=== PATIENT | female | born 1955 | race Caucasian/White ===

== ENCOUNTER → 2016-12-08 | Outpatient (CLI) | payer MEDICARE ==
[~2016-12-08] MED LIST: AMIT150T PO; AUGM875T28 PO; CLON0.5T PO; COUM1TAB14 PO; OMEP40CA2 PO; TRAM50TA2 PO
--- NOTE | 2016-12-08 09:04 | REP ---
MAXILLOFACIAL CT WITHOUT CONTRAST: HISTORY: Left mandible fracture. A BB was placed on the soft tissue overlying the body of the left mandible. The sinuses are clear. The ostiomeatal units are patent. The middle and inferior nasal turbinates are partially paradoxical. The nasal septum is midline. The cribriform plate, medial aguayo of the orbits and optic canals are intact. A 1.8 cm mass with a hypodense center is present in the subcutaneous tissue overlying the angle of the left mandible. There is thickening of the left masseter and platysma muscles. Stranding is present in the overlying subcutaneous tissue. The naso-, lidia- and hypopharynx are normal in appearance. Small lymph nodes less than 1 cm in size are present in the internal jugular chains, posterior triangles and submandibular areas. There is no fracture. There appear to be dental caries involving the remaining mandibular molar teeth bilaterally. IMPRESSION: 1. There is no acute or chronic sinusitis. 2. There is a 1.8 cm hypodense mass in the subcutaneous tissue lateral to the angle of the left mandible. There is enlargement of the left masseter and platysma muscles with associated stranding in the overlying subcutaneous tissue. These findings may represent an abscess, infected lymph node or hematoma. Signed by Campbell Aleman MD 12/08/2016 09:17 A
== END ==
LOC: M RAD 07:37
PROVIDERS: ATTEND Specialist
DX: R22.1 Localized swelling, mass and lump, neck (principal)

== ENCOUNTER 2016-12-13 15:03 | Inpatient (IN) | payer MEDICARE ==
[~2016-12-13] VITALS: Ht 167.6 cm; Wt 94.8 kg
[2016-12-13] MEDS ORDERED: ONDANSETRON 4MG/2ML VIAL (J2405) IV PRN (16:00)
[2016-12-13] MEDS ORDERED: ACETAMINOPHEN TAB 650MG DOSE (2X325MG) PO PRN (16:00)
[2016-12-13 18:45] VITALS: BP 168/93
[2016-12-13 20:00] VITALS: BP 138/82
[2016-12-13 20:00] LABS: BASO % 0.4 % (0.0-1.0); EOS # 0.1 K/mm3 (0.0-0.50); EOS % 0.9 % (0.0-3.0); LARGE UNSTAINED CELL # 0.3 K/mm3 (0.0-0.4); LYMPH # 1.9 K/mm3 (1.5-4.5); LYMPH % 22.6 % (24.0-44.0); MEAN CORPUSCULAR HGB CONC 33.8 g/dl (32.0-36.5); MEAN CORPUSCULAR VOLUME 97.6 fl (80.0-96.0); MONO # 0.5 K/mm3 (0.0-0.8); MONO % 5.3 % (0.0-5.0); NEUTROPHILS # 5.8 K/mm3 (1.8-7.7); NEUTROPHILS % 67.8 % (36.0-66.0); PLATELET COUNT, AUTOMATED 278 k/mm3 (150-450); RED CELL DISTRIBUTION WIDTH 12.5 % (11.5-14.5); WHITE BLOOD COUNT 8.6 K/mm3 (4.0-10.0)
[2016-12-13 20:08] LABS: INR 2.25
[2016-12-13] MEDS: NS 1,000 ML IV SCH (20:34)
[2016-12-13] MEDS: CLINDAMYCIN 600 MG in APPROPRIATE DILUENT 1 EA IV SCH (20:34)
[2016-12-13 20:37] LABS: ALBUMIN 3.5 GM/DL (3.2-5.2); ALBUMIN/GLOBULIN RATIO 0.88 (1.00-1.93); ALKALINE PHOSPHATASE 115 U/L (45-117); ALT/SGPT 45 U/L (12-78); ANION GAP 12 MEQ/L (8-16); AST/SGOT 46 U/L (15-37); BILIRUBIN,TOTAL 0.4 MG/DL (0.2-1.0); BLOOD UREA NITROGEN 17 MG/DL (7-18); CALCIUM LEVEL 8.7 MG/DL (8.8-10.2); CARBON DIOXIDE LEVEL 24 MEQ/L (21-32); CHLORIDE LEVEL 105 MEQ/L (98-107); CREATININE FOR GFR 0.72 MG/DL (0.55-1.02); GLOMERULAR FILTRATION RATE > 60.0 (>45); GLUCOSE, FASTING 95 MG/DL (80-110); POTASSIUM SERUM 3.7 MEQ/L (3.5-5.1); SODIUM LEVEL 141 MEQ/L (136-145); TOTAL PROTEIN 7.5 GM/DL (6.4-8.2)
[2016-12-13] MEDS ORDERED: TRAM50TA2 PO ×3 (20:49)
[2016-12-13] MEDS: NORCO, ANEXSIA 5/325MG TABLET (HYDROcodone/ACETAMINOPHEN) PO PRN (20:50)
[2016-12-13] MEDS ORDERED: OMEP40CA2 PO (21:04)
[2016-12-13] MEDS ORDERED: AMIT150T PO (21:04)
[2016-12-13] MEDS ORDERED: CLON0.5T PO (21:04)
[2016-12-13] MEDS ORDERED: PHYTONADIONE 10MG/ML INJECTION (J3430) SC ONE (21:15)
--- NOTE | 2016-12-13 21:59 | HPEPDOC ---
General Date of Admission Dec 13, 2016 at 18:38 Attending Physician: DESTINY SCOTT MD Chief Complaint The patient is a 61-year-old female admitted with a reason for visit of Dental Abscess. History of Present Illness 61-year-old female with past medical history of depression, GERD, Cervical Ca s/ p Chemo and Radiation in 2007, Factor V Leiden deficiency with History of PE and DVTs in the past, s/p [place] Filter and on Coumadin presents to the ER at the request of ENT Dr. Gautam, after she was noted to have a worsening dental abscess on CT Scan of the Maxillfacial region. Apparently, the patient developed the dental abscess/mass over the last 2 weeks. She did have it biopsied by Dr. Gautam, and evaluated by Dr. Zhong of Oral surgery as an outpatient. However, given the fact that the abscess has gotten worse, and the patient did develop some soreness in her throat as well as some difficulty swallowing, the patient was advised to come to the hospital for further evaluation and management with IV antibiotics, and further surgical intervention. During this time, the patient states that she has not felt febrile or had any complaints of chills, chest pain, shortness of breath, abdominal pain, or any nausea/vomiting/diarrhea. Home Medications Scheduled Amitriptyline HCl (Amitriptyline HCl) 150 Mg Tab, 150 MG PO QPM, (Reported) Omeprazole (Omeprazole) 40 Mg Cap, 40 MG PO QPM, (Reported) Tramadol HCl (Tramadol HCl) 50 Mg Tab, 50 MG PO QAM, (Reported) Tramadol HCl (Tramadol HCl) 50 Mg Tab, 50 MG PO DAILY, (Reported) Patient takes tramadol in morning and at noon (50mg) Tramadol HCl (Tramadol HCl) 50 Mg Tab, 100 MG PO QHS, (Reported) Scheduled PRN Clonazepam (Clonazepam) 0.5 Mg Tab, 0.5 MG PO TIDP PRN for ANXIETY/AGITATION, ( Reported) Allergies Coded Allergies: Morphine (Verified Allergy, Unknown, 07/11/12) Past Medical History Medical History As noted in HPI. Surgical History Hysterectomy Cholecystectomy Appendectomy Gastric bypass Abdominal hernia repairs Multiple abdominal surgeries with a history of ileostomy in the past, status post reversal Family History Significant Family History: No pertinent family hx Social History * Smoker: Denies Alcohol: Denies Drugs: marijuana (occasionally smokes marijuana) Review of Symptoms Other systems 10 point review of systems negative unless otherwise specified in HPI. Physical Examination General Exam: Positive: Alert, Cooperative, No Acute Distress ENT Exam: Positive: Atraumatic, Other ENT (patient noted to have a golf ball sized abscess/mass on the superficial aspect of the left submandibular region. No active drainage noted. Patient also noted to have some superficial swelling on the inside of the mouth on the left side, with no open lesions noted.), Negative: Mucous membr. moist/pink (dry mucous membranes) Neck Exam: Negative: JVD Chest Exam: Positive: Clear to auscultation, Normal air movement Heart Exam: Positive: Rate Normal, Normal S1, Normal S2 Abdomen Exam: Positive: Soft, Other (multiple surgical scars noted from previous surgeries.), Negative: Tenderness Extremity Exam: Negative: Tenderness, Swelling Psych Exam: Positive: Oriented x 3 Vital Signs Vital Signs Date Time Temp Pulse Resp B/P (MAP) Pulse Ox O2 Delivery O2 Flow Rate FiO2 12/13/16 20:50 18 12/13/16 20:00 100.3 84 138/82 (100) 94 Room Air Laboratory Data Labs 24H Laboratory Tests 2 12/13/16 19:34: White Blood Count 8.6, Red Blood Count 4.19, Hemoglobin 13.8, Hematocrit 40.9, Mean Corpuscular Volume 97.6H, Mean Corpuscular Hemoglobin 33.0, Mean Corpuscular Hemoglobin Concent 33.8, Red Cell Distribution Width 12.5, Platelet Count 278, Neutrophils (%) (Auto) 67.8H, Lymphocytes (%) (Auto) 22.6L, Monocytes (%) (Auto) 5.3H, Eosinophils (%) (Auto) 0.9, Basophils (%) (Auto) 0.4 , Neutrophils # (Auto) 5.8, Lymphocytes # (Auto) 1.9, Monocytes # (Auto) 0.5, Eosinophils # (Auto) 0.1, Basophils # (Auto) 0.0, Large Unclassified Cells % 3.0 , Large Unclassified Cells # 0.3, Prothrombin Time 25.7H, Prothromb Time International Ratio 2.25, Activated Partial Thromboplast Time 43.9H, Anion Gap 12, Glomerular Filtration Rate > 60.0, Blood Urea Nitrogen 17, Creatinine 0.72, Sodium Level 141, Potassium Level 3.7, Chloride Level 105, Carbon Dioxide Level 24, Calcium Level 8.7L, Aspartate Amino Transf (AST/SGOT) 46H, Alanine Aminotransferase (ALT/SGPT) 45, Alkaline Phosphatase 115, Total Bilirubin 0.4, Total Protein 7.5, Albumin 3.5, C-Reactive Protein, Quantitative 0.81H, Albumin/ Globulin Ratio 0.88L CBC/BMP Laboratory Tests 12/13/16 19:34 Red Blood Count 4.19, Mean Corpuscular Volume 97.6 H, Mean Corpuscular Hemoglobin 33.0, Mean Corpuscular Hemoglobin Concent 33.8, Red Cell Distribution Width 12.5, Neutrophils (%) (Auto) 67.8 H, Lymphocytes (%) (Auto) 22.6 L, Monocytes (%) (Auto) 5.3 H, Eosinophils (%) (Auto) 0.9, Basophils (%) ( Auto) 0.4, Neutrophils # (Auto) 5.8, Lymphocytes # (Auto) 1.9, Monocytes # (Auto ) 0.5, Eosinophils # (Auto) 0.1, Basophils # (Auto) 0.0, Calcium Level 8.7 L, Aspartate Amino Transf (AST/SGOT) 46 H, Alanine Aminotransferase (ALT/SGPT) 45, Alkaline Phosphatase 115, Total Bilirubin 0.4, Total Protein 7.5, Albumin 3.5 Microbiology Microbiology 12/13/16 Blood Culture, Received Pending 12/13/16 Blood Culture, Received Pending Plan / VTE VTE Prophylaxis Ordered?: Yes Plan Plan Dental Abscess Maxillofacial CT notable for 1.8 cm hypodense mass/abscess in the subcutaneous tissue lateral to the angle of the left mandible Blood cultures, wound culture ordered I did discuss the case with Dr. Gautam of ENT who sent the patient to be directly admitted to the hospital Started on Clindamycin as per ENT Dr. Ortega of Oral Surgery consulted for further evaluation for possible drainage IVF hydration Keep the patient NPO We will f/u with surgical recommendations Factor V Leiden deficiency with History of PE and DVTs s/p [place] filter Patient does take Coumadin for this--INR noted to be 2.25 We will give the patient a dose of Vitamin K in preparation for possible surgery in the AM In the mean-time the patient can be bridged with Lovenox SC BID once her INR is subtherapeutic Depression, stable Continue amitriptyline History of anxiety, stable Continue Klonopin 3 times a day when necessary GERD Continue PPI Cervical Ca s/p Chemo and Radiation in 2007 DVT Prophylaxis INR therapeutic at this time, SCDs/TEDs ordered (Can be started on Lovenox SC BID once INR subtherapeutic, and around surgery) The patient will be admitted under the service of Dr. Scott, who will begin to follow the patient on 12/14/16 at 7 AM. KARY LUCIANO MD Dec 13, 2016 21:59
[2016-12-13] MEDS: clonazePAM 0.5 MG TAB PO PRN (22:38)
[2016-12-13] MEDS ORDERED: KETOROLAC 30 MG/ML VIAL (J1885) IV ONE (23:00)
[2016-12-14] VITALS (8 sets, daily range): BP systolic 117–159; BP diastolic 66–91
[2016-12-14] MEDS: AMITRIPTYLINE 50 MG TAB PO SCH ×2 (00:05→20:22)
[2016-12-14] MEDS: CLINDAMYCIN 600 MG in APPROPRIATE DILUENT 1 EA IV SCH ×4 (02:27→20:20)
[2016-12-14] MEDS: NS 1,000 ML IV SCH (06:44)
[2016-12-14] MEDS: PANTOPRAZOLE 40MG TAB (PROTONIX) PO SCH (08:04)
[2016-12-14] MEDS: NORCO, ANEXSIA 5/325MG TABLET (HYDROcodone/ACETAMINOPHEN) PO PRN ×2 (08:04→12:17)
[2016-12-14 08:07] LABS: MEAN CORPUSCULAR HEMOGLOBIN 32.6 pg (27.0-33.0); MEAN CORPUSCULAR HGB CONC 33.1 g/dl (32.0-36.5); MEAN CORPUSCULAR VOLUME 98.6 fl (80.0-96.0); RED CELL DISTRIBUTION WIDTH 12.5 % (11.5-14.5); WHITE BLOOD COUNT 9.1 K/mm3 (4.0-10.0)
[2016-12-14 08:11] LABS: INR 2.49
[2016-12-14 08:29] LABS: ANION GAP 10 MEQ/L (8-16); BLOOD UREA NITROGEN 16 MG/DL (7-18); CARBON DIOXIDE LEVEL 28 MEQ/L (21-32); CHLORIDE LEVEL 107 MEQ/L (98-107); CREATININE FOR GFR 0.85 MG/DL (0.55-1.02); GLOMERULAR FILTRATION RATE > 60.0 (>45); GLUCOSE, FASTING 97 MG/DL (80-110); MAGNESIUM LEVEL 1.3 MG/DL (1.8-2.4); POTASSIUM SERUM 3.3 MEQ/L (3.5-5.1); SODIUM LEVEL 145 MEQ/L (136-145)
[2016-12-14] MEDS ORDERED: MAGNESIUM OXIDE 400 MG TAB (MAG-OX) PO ONE (08:45)
[2016-12-14] MEDS ORDERED: CALCIUM CARBONATE 500 MG CHEW U/D PO ONE (08:45)
[2016-12-14] MEDS ORDERED: POTASSIUM CHLORIDE 10 MEQ SR TABLET PO ONE (09:00)
[2016-12-14] MEDS ORDERED: ACETAMINOPHEN TAB 650MG DOSE (2X325MG) PO ONE (11:15)
[2016-12-14] MEDS: clonazePAM 0.5 MG TAB PO PRN (12:17)
[2016-12-14] MEDS ORDERED: LIDOCAINE 2% W/ EPINEPHRINE 1.7 ML DENTAL INJ As Ordered ONE (16:20)
[2016-12-14] MEDS ORDERED: CHLORHEXIDINE GLUCONATE 0.12 % 15ML UDC (PERIDEX ORAL RINSE) As Ordered ONE (16:20)
[2016-12-14] MEDS ORDERED: MIDAZOLAM INJ 2 MG/2 ML VIAL (J2250) As Ordered ONE (16:29)
[2016-12-14] MEDS ORDERED: fentaNYL 100 MCG/2 ML INJECTION (J3010) As Ordered ONE ×2 (16:29→17:28)
[2016-12-14] MEDS ORDERED: ROCURONIUM BROMIDE 50 MG/5 ML VIAL/SYRINGE As Ordered ONE (16:33)
[2016-12-14] MEDS ORDERED: PROPOFOL 200 MG/20 ML VIAL As Ordered ONE (16:33)
[2016-12-14] MEDS ORDERED: LIDOCAINE 2% INJ 100 MG/5 ML SDV (FOR ANES.) As Ordered ONE (16:33)
[2016-12-14] MEDS ORDERED: UNASYN 1.5 GM VIAL As Ordered ONE (16:45)
[2016-12-14 17:01] LABS: INR 1.67
[2016-12-14] MEDS ORDERED: dexameTHASONE 4 MG/ML 1ML VIAL (J1100) As Ordered ONE (17:42)
[2016-12-14] MEDS ORDERED: ONDANSETRON 4MG/2ML VIAL (J2405) As Ordered ONE (17:44)
[2016-12-14] MEDS ORDERED: KETOROLAC 60 MG/2 ML VIAL (J1885) As Ordered ONE (17:44)
[2016-12-14] MEDS ORDERED: NEOSTIGMINE 1MG/ML 5 ML SYRINGE (J2710) As Ordered ONE (17:45)
[2016-12-14] MEDS ORDERED: GLYCOPYRROLATE INJ 0.2 MG/ML 2 ML VIAL As Ordered ONE (17:45)
[2016-12-14] MEDS ORDERED: HYDROmorphone HCL 1 MG/ML SYRINGE (J1170) IV PRN (18:45)
[2016-12-14] MEDS ORDERED: LR 1,000 ML IV SCH (18:45)
[2016-12-14] MEDS ORDERED: ONDANSETRON 4MG/2ML VIAL (J2405) IV PRN (18:45)
[2016-12-14] MEDS ORDERED: PERCOCET 5MG/325MG TAB PO PRN (18:45)
[2016-12-14] MEDS ORDERED: fentaNYL 100 MCG/2 ML INJECTION (J3010) IV PRN (18:45)
[2016-12-14] MEDS: PERCOCET 5MG/325MG TAB PO PRN (20:22)
[2016-12-14] MEDS ORDERED: AMITRIPTYLINE 50 MG TAB PO SCH (21:00)
[2016-12-15] VITALS (7 sets, daily range): BP systolic 115–150; BP diastolic 67–90
[2016-12-15] MEDS: AMPICILLIN SOD/SULBACTAM SOD 3 GM in D5W MINI-BAG PLUS 100 ML IV SCH ×5 (00:34→23:59)
[2016-12-15] MEDS: HEPARIN SOD (PORCINE) 5000 UNITS/ML VIAL SQ SCH ×2 (02:23→14:32)
[2016-12-15] MEDS: CLINDAMYCIN 600 MG in APPROPRIATE DILUENT 1 EA IV SCH (02:23)
[2016-12-15] MEDS: PERCOCET 5MG/325MG TAB PO PRN ×3 (06:47→18:22)
[2016-12-15 08:11] LABS: MEAN CORPUSCULAR HEMOGLOBIN 32.4 pg (27.0-33.0); MEAN CORPUSCULAR HGB CONC 32.5 g/dl (32.0-36.5); MEAN CORPUSCULAR VOLUME 99.9 fl (80.0-96.0); RED CELL DISTRIBUTION WIDTH 12.7 % (11.5-14.5)
[2016-12-15 08:16] LABS: INR 1.3
[2016-12-15 08:29] LABS: ANION GAP 7 MEQ/L (8-16); BLOOD UREA NITROGEN 10 MG/DL (7-18); CARBON DIOXIDE LEVEL 33 MEQ/L (21-32); CHLORIDE LEVEL 103 MEQ/L (98-107); CREATININE FOR GFR 0.81 MG/DL (0.55-1.02); GLOMERULAR FILTRATION RATE > 60.0 (>45); GLUCOSE, FASTING 94 MG/DL (80-110); MAGNESIUM LEVEL 1.3 MG/DL (1.8-2.4); POTASSIUM SERUM 4.4 MEQ/L (3.5-5.1); SODIUM LEVEL 143 MEQ/L (136-145)
[2016-12-15] MEDS: PANTOPRAZOLE 40MG TAB (PROTONIX) PO SCH (09:10)
--- NOTE | 2016-12-15 10:59 | RO ---
DATE OF PROCEDURE: 12/14/2016 SURGEON: Roosevelt Ortega DMD, MD ASSISTANTS: None. PREOPERATIVE DIAGNOSES: 1. Left facial abscess. 2. Full bony impacted and necrotic tooth #17. POSTOPERATIVE DIAGNOSES: Status post : 1. Left facial abscess. 2. Full bony impacted and necrotic tooth #17. PROCEDURE PERFORMED: Intraoral and extraoral incision and drainage of left facial abscess, as well as surgical extraction of tooth #17. ANESTHESIA: General endotracheal anesthesia via oral ray. SPECIMEN: Aerobes, anaerobes, cultures and sensitivity, as well as permanent specimen sent to the pathology laboratory. INDICATIONS FOR PROCEDURE: Mrs. India Vargas is a pleasant 61-year-old female who for the last 3 weeks has been complaining of progressively worsening left facial swelling. She was seen by her primary care physician, as well as the ear, nose, and throat colleagues, who determined that the facial swelling was stemming from an impacted wisdom tooth. The patient had seen the ear, nose, and throat physician on 12/13/2016, who saw that the swelling was progressively worsening; and, therefore, he directly admitted her to [facility]. At that point, her hospitalist called me to evaluate the patient. Upon evaluation, the patient had a moderate to severe well-localized left extraoral cheek swelling with skin erythema, as well as a large draining fistula in the middle of the swelling draining purulent material. The swelling was indurated. However, it was localized to the cheek with no neck involvement. Intraoral examination reveals that she is completely edentulous. Her maximal opening is about three finger widths. As I mentioned, she is completely edentulous. Therefore, the examination did not reveal any caries. However, the radiographic examination does reveal full bony impacted wisdom teeth #17 and #32, where #17 seems to be necrotic with severe caries on the CT scan, and this corresponded to the clinical examination of a very tender and full left posterior mandibular vestibule and retromolar pad area with no extension into the floor of the mouth or the uvula. Therefore, there was no airway compromise. Her cranial nerve VII was completely intact while the left trigeminal nerve (V3) had a subjective feeling of about 6/10, which is something that she says has been going on for the last 2-3 weeks, which is numbness of her lower left lip. 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 All the risks, benefits, and alternatives were explained to the patient. The treatment plan for the patient is to take her to the operating room, do an aggressive incision and drainage intraorally and extraorally, and remove the impacted wisdom tooth #17. The risks that were explained to the patient included inferior alveolar nerve damage could be permanent, could be temporary, as well as facial nerve damage from the incision and drainage of the left cheek. We also discussed things, such as jaw fracture, delayed healing, and postoperative infection. At that point, the patient elects to proceed with the proposed treatment; and a complete history and physical was performed and is in the patient's chart, as well as an informed consent, which was signed by the patient and me. DESCRIPTION OF PROCEDURE: On 12/14/2016, the patient was taken to the preoperative holding area, where I met the patient. Any last-minute questions were addressed. The history and physical and the consent were updated. At that point, the patient was taken back to the operating room. She was laid supine on the operating room table. Ulnar nerve protectors were placed. Noninvasive cardiac monitors were applied. At that point, the patient underwent general anesthesia, and she was intubated with an oral ray without any incident. At that point, the tube was then secured to the patient's right cheek. At this point, the patient was then prepped and draped in the usual sterile fashion. A time-out procedure was performed to identify the patient, the procedure, and any other precautions. Preoperative antibiotics in the form of 3 grams of Unasyn were administered. This was followed by insertion of a moist throat pack in the oropharynx and administration of six carpules of 2% lidocaine with 1:100,000 epinephrine as local infiltration intraorally and extraorally, as well as left mandibular block. A full-thickness flap incision was made approximating the location of tooth #17, started out as a hockey-stick extension and a crestal incision proximally and distally down to bone. The flap was dissected subperiosteally all the way down to the inferior border of the mandible. At this point, necrotic tissue, as well as purulent material, was obviously noted; and cultures were then taken with aerobes, anaerobes, and cultures and sensitivities that were sent to the microbiology laboratory, as well as mucosa specimen and perifollicular tissues were removed and sent to the pathology laboratory for permanent sections. At this point, a Surgitome was used to remove overlying bony areas, making a trough medially, distally, and apically in the facial cortex to expose tooth #17, which was noted to be completed necrotic with gross caries. The tooth was sectioned in multiple segments and was fully removed in total. The socket was at this point inspected. The inferior alveolar nerve was not noted. The lingual cortex was completely intact, and the facial cortex was mostly intact. However, there was a dehiscence in the facial cortex apically were the roots of the tooth would be located, and this dehiscence in the cortex has a fibrous track that leads directly into the buccinator muscle towards the outside of the left cheek. This fibrous track was manually removed and debrided. Copious irrigation was performed into the socket and subperiosteally. At this point, attention was then given to the left cheek fistula, which was prepped with Betadine. At this point, cultures were taken from the fistula, aerobes and anaerobes, as well; and a hemostat was then inserted into the fistulous track extraorally extending intraorally to connect it to the area where the facial dehiscence was. Therefore, this was a [id number] defect. The hemostat was used to perform blunt dissection. A copious amount of necrotic and purulent tissue was removed from the extraoral fistula track. Copious irrigation was performed, and then wet-to-dry dressings with Nu Gauze were inserted from the extraoral to the intraoral environment. At this point, attention was then given back to the intraoral wound, which was once again copiously irrigated and suctioned and was closed primarily with 3-0 Vicryl sutures. The oral cavity was irrigated and suctioned. The throat pack was removed, and the patient was then with awakened from general anesthesia and taken back to the postanesthesia care unit (PACU). To mention, a Telfa dressing was placed onto the left cheek wound with 4 x 4 gauze and tape. No complications to mention at the time of surgery. Estimated blood loss was at 25 mL. Drains: There were no drains placed. However, 1/4- inch Nu Gauze were placed as wet-to-dry dressings in the left cheek abscess area.
[2016-12-15] MEDS ORDERED: MAG SULF 1GM/100ML (MAG RUN) 1 GM in APPROPRIATE DILUENT 1 EA IV ONE (11:00)
[2016-12-15] MEDS: clonazePAM 0.5 MG TAB PO PRN ×2 (12:24→20:34)
[2016-12-15] MEDS ORDERED: MOM 30ML SUSPENSION UDC PO PRN (12:45)
[2016-12-15] MEDS ORDERED: MOM 30ML SUSPENSION UDC PO ONE (12:45)
[2016-12-15] MEDS ORDERED: MIRALAX *UNIT DOSE* 17GM PACKET PO PRN (12:45)
[2016-12-15] MEDS ORDERED: SENOKOT S TAB PO ONE (12:45)
--- NOTE | 2016-12-15 20:02 | IPNPDOC ---
Subjective Date Seen The patient was seen on 12/14/16. Subjective Chief Complaint/HPI The patient is a 61-year-old female admitted with a reason for visit of Dental Abscess. Pt was seen and examined at bedside. Pt states she slept well after receiving Amitriptyline and Toradol. Pt states that her swelling has gone down on her abscess and that she has numbness and tingling on the left side of her face around the abscess. Pt has been NPO for abscess surgery scheduled for today. No acute complaints. Constitutional: Denies: Chills, Fever, Night Sweats ENT: Reports: Head Aches (above the right eye), Dysphagia (difficulty swallowing due to pain from the abscess) Pulmonary: Denies: Dyspnea, Cough Cardiovascular: Denies: Chest Pain Gastrointestinal: Reports: Abdominal Pain (Pt states that she has baseline abdominal pain from previous surgical history and hernias. She states that the abdominal pain is not above her baseline.), Denies: Nausea, Vomiting, Diarrhea Psych: Reports: Mood Normal Objective Physical Examination General Exam: Positive: Alert, Cooperative, No Acute Distress ENT Exam: Positive: Atraumatic, Other ENT (patient noted to have a golf ball sized abscess/mass on the superficial aspect of the left submandibular region. No active drainage noted. Patient also noted to have some superficial swelling on the inside of the mouth on the left side, with no open lesions noted.), Negative: Mucous membr. moist/pink (dry mucous membranes) Neck Exam: Negative: JVD Chest Exam: Positive: Clear to auscultation, Normal air movement Heart Exam: Positive: Rate Normal, Normal S1, Normal S2 Abdomen Exam: Positive: Normal bowel sounds, Soft, Other (multiple surgical scars noted from previous surgeries.), Negative: Tenderness Extremity Exam: Positive: Normal pulses, Tenderness Psych Exam: Positive: Mental status NL, Mood NL, Oriented x 3 Assessment /Plan Assessment Dental Abscess -Maxillofacial CT on 12/08/16 notable for 1.8 cm hypodense mass/abscess in the subcutaneous tissue lateral to the angle of the left mandible -pt started on clindamycin on 12/13/16 -blood cultures still pending -pt NPO for oral surgery on 12/14/16 -phytonadione given this morning (12/14/16) in preparation for surgery -IV hydration started 12/13/16 -Oxycodone and hydrocodone PRN pain -Zofran PRN nausea -Acetaminophen PRN fever -appreciate any surgical recommendations Hypomagnesia -pt supplemented with magnesium oxide Hypocalcemia -pt supplemented with calcium carbonate Hypokalemia - pt supplemented with potassium chloride Factor V Leiden deficiency with History of PE and DVTs -s/p [place] filter -home coumadin held for surgery -INR elevated at 2.49. Transfused FFP to obtain therapeutic INR prior to surgery Depression - Continue home amitriptyline Hx of Anxiety -Continue clonazepam prn GERD -started on pantoprazole (home med is omeprazole) Cervical Cancer -s/p Chemo and Radiation in 2007 DVT Prophylaxis -SCDs/TEDs -start heparin 6 hours after surgery Plan/VTE VTE Prophylaxis Ordered?: Yes VS, I&O, 24H, [facility], [facility] Vital Signs/I&O Vital Signs Date Time Temp Pulse Resp B/P (MAP) Pulse Ox O2 Delivery O2 Flow Rate FiO2 12/14/16 08:04 17 12/14/16 00:00 Room Air 12/14/16 00:00 98.1 87 124/66 (85) 94 I&O- Last 24 Hours up to 6 AM 12/14/16 06:00 Intake Total 350 ml Output Total 1325 ml Balance -975 ml Laboratory Data 24H LABS Laboratory Tests 2 12/13/16 19:34: White Blood Count 8.6, Red Blood Count 4.19, Hemoglobin 13.8, Hematocrit 40.9, Mean Corpuscular Volume 97.6H, Mean Corpuscular Hemoglobin 33.0, Mean Corpuscular Hemoglobin Concent 33.8, Red Cell Distribution Width 12.5, Platelet Count 278, Neutrophils (%) (Auto) 67.8H, Lymphocytes (%) (Auto) 22.6L, Monocytes (%) (Auto) 5.3H, Eosinophils (%) (Auto) 0.9, Basophils (%) (Auto) 0.4 , Neutrophils # (Auto) 5.8, Lymphocytes # (Auto) 1.9, Monocytes # (Auto) 0.5, Eosinophils # (Auto) 0.1, Basophils # (Auto) 0.0, Large Unclassified Cells % 3.0 , Large Unclassified Cells # 0.3, Prothrombin Time 25.7H, Prothromb Time International Ratio 2.25, Activated Partial Thromboplast Time 43.9H, Anion Gap 12, Glomerular Filtration Rate > 60.0, Blood Urea Nitrogen 17, Creatinine 0.72, Sodium Level 141, Potassium Level 3.7, Chloride Level 105, Carbon Dioxide Level 24, Calcium Level 8.7L, Aspartate Amino Transf (AST/SGOT) 46H, Alanine Aminotransferase (ALT/SGPT) 45, Alkaline Phosphatase 115, Total Bilirubin 0.4, Total Protein 7.5, Albumin 3.5, C-Reactive Protein, Quantitative 0.81H, Albumin/ Globulin Ratio 0.88L 12/14/16 07:10: Prothrombin Time 27.9H, Prothromb Time International Ratio 2.49 CBC/BMP Laboratory Tests 12/13/16 19:34 Red Blood Count 4.19, Mean Corpuscular Volume 97.6 H, Mean Corpuscular Hemoglobin 33.0, Mean Corpuscular Hemoglobin Concent 33.8, Red Cell Distribution Width 12.5, Neutrophils (%) (Auto) 67.8 H, Lymphocytes (%) (Auto) 22.6 L, Monocytes (%) (Auto) 5.3 H, Eosinophils (%) (Auto) 0.9, Basophils (%) ( Auto) 0.4, Neutrophils # (Auto) 5.8, Lymphocytes # (Auto) 1.9, Monocytes # (Auto ) 0.5, Eosinophils # (Auto) 0.1, Basophils # (Auto) 0.0, Calcium Level 8.7 L, Aspartate Amino Transf (AST/SGOT) 46 H, Alanine Aminotransferase (ALT/SGPT) 45, Alkaline Phosphatase 115, Total Bilirubin 0.4, Total Protein 7.5, Albumin 3.5 12/14/16 07:10 Red Blood Count 3.93 L, Mean Corpuscular Volume 98.6 H, Mean Corpuscular Hemoglobin 32.6, Mean Corpuscular Hemoglobin Concent 33.1, Red Cell Distribution Width 12.5 Microbiology Microbiology 12/13/16 Blood Culture, Received Pending 12/13/16 Blood Culture, Received Pending GME ATTESTATION GME ATTESTATION My preceptor for this patient encounter was physically present in the building during the encounter and was fully available. As needed, all aspects of the patient interview, examination, medical decision making process, and medical care plan development were reviewed and approved by the preceptor. Preceptor is aware and concurs with the plan as stated in the body of this note and will attest to such by his/her cosignature. Attending Note Attending Note I have independently interviewed and examined this patient at the bedside, and discussed the management plan with my Resident Physician, Dr. Rogers, as documented above. ATA ROGERS DO Dec 14, 2016 08:28 DESTINY SCOTT MD Dec 16, 2016 08:37
[2016-12-15] MEDS: SENOKOT S TAB PO SCH (20:34)
[2016-12-15] MEDS: AMITRIPTYLINE 50 MG TAB PO SCH (20:34)
--- NOTE | 2016-12-15 20:57 | IPNPDOC ---
Subjective Date Seen The patient was seen on 12/15/16. Subjective Chief Complaint/HPI The patient is a 61-year-old female admitted with a reason for visit of Dental Abscess. Pt was seen and examined at bedside. Pt was s/p incision and drainage of a dental abscess in left mandible area. Procedure was done 12/14/[address] Ortega. Pt states that she feels "better than she thought it would be" in terms of pain. Pt is concerned about constipation since she hasn't had a bowel movement for 4 days, and has history of gastric bypass and normally has 3-4 BMs/ day. Pt states that her throat is sore, she believes from the drainage of the surgery. Pt also states that she is having slight difficulty swallowing her medications but is able to swallow them. No other complaints or reported events overnight. Constitutional: Denies: Chills, Fever ENT: Denies: Dysphagia Pulmonary: Denies: Dyspnea, Cough Cardiovascular: Denies: Chest Pain Gastrointestinal: Reports: Constipation (Last bowel movement was 4 days ago), Denies: Nausea, Vomiting, Diarrhea Neurological: Denies: Weakness, Numbness, Change in speech Psych: Reports: Mood Normal Objective Physical Examination General Exam: Positive: Alert, Cooperative, No Acute Distress ENT Exam: Positive: Atraumatic, Mucous membr. moist/pink (dry mucous membranes) , Other ENT (patient s/p incision/drainage of abscess/mass on the superficial aspect of the left submandibular region. Incision was packed with guaze. No active draining was noted. Patient's superficial swelling has decreased since before the procedure.) Neck Exam: Negative: JVD Chest Exam: Positive: Clear to auscultation, Normal air movement Heart Exam: Positive: Rate Normal, Normal S1, Normal S2 Abdomen Exam: Positive: BS Hypoactive, Soft, Other (multiple surgical scars noted from previous surgeries.), Negative: Tenderness Extremity Exam: Negative: Edema, Tenderness, Swelling Neuro Exam: Positive: Normal Speech Psych Exam: Positive: Mood NL, Oriented x 3 Assessment /Plan Assessment Dental Abscess -Surgical I/D performed yesterday 12/[address] Ortega. -elevated CRP, likely reactive from operative procedure. Monitor -pt stopped clindamycin and started on ampicillin q6h IV today, 12/15/16 -Unasyn started today, 12/15 -blood cultures negative at 48hrs. Abscess cultures pending -Infectious Disease consulted. Appreciate Dr. Armas's assistance -pt placed on full liquid diet s/p procedure -Percocet & [place] PRN pain -appreciate surgical recommendations Constipation -last bowel movement was 4 days ago per pt history -milk of magnesia 30 ml, 2 tabs Senna, and polyethylene glycol given to promote bowel movement Hypomagnesia -pt continued supplementation yesterday and again today with magnesium oxide Hypocalcemia -pt supplemented with calcium carbonate for low levels 12/14/16 Hypokalemia - resolved with supplement yesterday Factor V Leiden deficiency with History of PE and DVTs -s/p [place] filter -Coumadin held prior to surgery and continues to be on hold post-op. Will restart 24 hours after procedure -INR normal at 1.3 today Depression - Continue on home amitriptyline Hx of Anxiety Continue clonazepam GERD -pantoprazole (home med is omeprazole) Cervical Cancer -s/p Chemo and Radiation in 2007 DVT Prophylaxis -INR in therapeutic range -SCDs/TEDs ordered -Lovenox started today, Heparin discontinued Plan/VTE VTE Prophylaxis Ordered?: Yes VS, I&O, 24H, Fishbone Vital Signs/I&O Vital Signs Date Time Temp Pulse Resp B/P (MAP) Pulse Ox O2 Delivery O2 Flow Rate FiO2 12/15/16 12:15 18 12/15/16 09:15 98.7 101 150/84 (106) 97 Room Air 12/15/16 04:00 2.0 I&O- Last 24 Hours up to 6 AM 12/15/16 06:00 Intake Total 2040 ml Output Total 2995 ml Balance -955 ml Laboratory Data 24H LABS Laboratory Tests 2 12/14/16 16:29: Prothrombin Time 20.2H, Prothromb Time International Ratio 1.67 12/15/16 07:57: Prothrombin Time 16.5H, Prothromb Time International Ratio 1.30, Activated Partial Thromboplast Time 28.6, Anion Gap 7L, Glomerular Filtration Rate > 60.0 , Blood Urea Nitrogen 10, Creatinine 0.81, Sodium Level 143, Potassium Level 4.4 #, Chloride Level 103, Carbon Dioxide Level 33H, Calcium Level 8.0L, Magnesium Level 1.3L, C-Reactive Protein, Quantitative 1.00H CBC/BMP Laboratory Tests 12/15/16 07:57 Red Blood Count 3.75 L, Mean Corpuscular Volume 99.9 H, Mean Corpuscular Hemoglobin 32.4, Mean Corpuscular Hemoglobin Concent 32.5, Red Cell Distribution Width 12.7, Calcium Level 8.0 L Microbiology Microbiology 12/13/16 Blood Culture - Preliminary, Resulted No growth after 24 hours . All specim... 12/13/16 Blood Culture - Preliminary, Resulted No growth after 24 hours . All specim... 12/14/16 Gram Stain - Final, Resulted 12/14/16 Abscess Culture, Resulted Pending 12/14/16 Anaerobic Culture, Resulted Pending Attending Note Attending Note I have independently interviewed and examined this patient at the bedside, and discussed the management plan with my Resident Physician, Dr. Rogers, as documented above. ATA ROGERS DO Dec 15, 2016 14:35 DESTINY SCOTT MD Dec 16, 2016 08:38
[2016-12-15] MEDS: ENOXAPARIN 100MG/1ML SYRINGE (J1650) SC SCH (21:00)
[2016-12-16] VITALS: BP 122/79
[2016-12-16] MEDS: AMPICILLIN SOD/SULBACTAM SOD 3 GM in D5W MINI-BAG PLUS 100 ML IV SCH ×2 (05:11→12:04)
[2016-12-16] MEDS: PERCOCET 5MG/325MG TAB PO PRN ×2 (05:32)
[2016-12-16 06:52] LABS: MEAN CORPUSCULAR HEMOGLOBIN 31.9 pg (27.0-33.0); MEAN CORPUSCULAR HGB CONC 31.7 g/dl (32.0-36.5); MEAN CORPUSCULAR VOLUME 100.5 fl (80.0-96.0); RED CELL DISTRIBUTION WIDTH 12.8 % (11.5-14.5); WHITE BLOOD COUNT 6.3 K/mm3 (4.0-10.0)
[2016-12-16 07:06] LABS: INR 1.18
[2016-12-16 07:10] LABS: ANION GAP 6 MEQ/L (8-16); BLOOD UREA NITROGEN 8 MG/DL (7-18); CALCIUM LEVEL 8.7 MG/DL (8.8-10.2); CARBON DIOXIDE LEVEL 32 MEQ/L (21-32); CHLORIDE LEVEL 105 MEQ/L (98-107); CREATININE FOR GFR 0.64 MG/DL (0.55-1.02); GLOMERULAR FILTRATION RATE > 60.0 (>45); GLUCOSE, FASTING 92 MG/DL (80-110); MAGNESIUM LEVEL 2.1 MG/DL (1.8-2.4); POTASSIUM SERUM 4.1 MEQ/L (3.5-5.1); SODIUM LEVEL 143 MEQ/L (136-145)
[2016-12-16 08:00] VITALS: BP 135/87
[2016-12-16] MEDS: SENOKOT S TAB PO SCH (08:20)
[2016-12-16] MEDS: PANTOPRAZOLE 40MG TAB (PROTONIX) PO SCH (08:20)
[2016-12-16] MEDS: ENOXAPARIN 100MG/1ML SYRINGE (J1650) SC SCH (08:21)
--- NOTE | 2016-12-16 11:11 | IPN ---
DATE: 12/15/2016 REASON FOR CONSULTATION: Dental abscess with a sinus tract to the cheek. HISTORY OF PRESENT ILLNESS: [place] is a 61-year-old female with a history of dental abscess that has been developing over the past month. The patient stated that she has had problems with this left side of her face with recurrent infections that have been taken care of by primary care. About a couple months ago, her primary care provider gave her some antibiotic, she thinks it was clindamycin, and made a referral to ears, nose and throat (ENT). She was seen by Dr. Gautam who felt that she needed to be seen by oral surgery. Dr. Zhong saw her in evaluation and Dr. Roosevelt Ortega took her to the operating room for drainage of an abscess from an impacted wisdom tooth, but also noted that she had a sinus tract to the cheek. The patient had incision and drainage with packing and started on intravenous (IV) Unasyn. Dr. Ortega was concerned that she might have actinomycosis. She stated that she has had a fall on her face in the past year that has triggered this infection but she has had problem with that tooth for years. PAST MEDICAL HISTORY: Significant for: 1. Depression. 2. Gastroesophageal reflux disease. 3. Cervical cancer (CA) status post chemotherapy and radiation in 2007. 4. Factor V Leiden deficiency. 5. History of pulmonary embolism and deep vein thrombosis status post [place] filter on Coumadin. MEDICATIONS: - amitriptyline 150 mg at bedtime - omeprazole 40 mg daily - tramadol 50 mg twice a day as needed ALLERGIES: MORPHINE. PAST SURGICAL HISTORY: 1. Hysterectomy. 2. Cholecystectomy. 3. Appendectomy. 4. Gastric bypass. 5. Multiple abdominal hernia repairs and adhesions. 6. History of an ileostomy and reversal for bowel perforation. FAMILY HISTORY: Non revealing. SOCIAL HISTORY: She does not smoke, drink. She smokes marijuana occasionally. REVIEW OF SYSTEMS: She denies any nausea, vomiting, diarrhea, abdominal pain. She had a low-grade fever on admission. No chills. She has no cough, shortness of breath. No chest pain. No upper or lower extremity weakness. PHYSICAL EXAMINATION: GENERAL: On physical exam, she is a pleasant, healthy-looking female in no acute distress. VITAL SIGNS: Temperature maximum (T-max) was 100.3 on 09/05. Today was 99.6, pulse 87, respirations 20, blood pressure 139/87, oxygen saturation 96% on room air. HEART: Normal S1, S2 with no murmurs, rubs or gallops. LUNGS: Clear. No wheezes, rales or rhonchi. ABDOMEN: Soft, nontender. No hepatosplenomegaly. EXTREMITIES: No clubbing, cyanosis or edema. No calf tenderness. HEENT: Oropharynx, she admits difficulty opening. I could not examine the inside of her mouth. The left cheek has an area of packing with incision and drainage significant swelling of the mandible. Mild tenderness. NECK: Supple with no jugular venous distention (JVD), no bruits . LABORATORY DATA: White count eight, hemoglobin 12.1, hematocrit 37.4, platelets 249. Sodium 143, potassium 4.4, chloride 103, bicarb 33, BUN 10, creatinine 0.81, glucose 94, calcium eight, magnesium 1.3. CRP is one which is the highest CRP in three days. IMAGING: Maxillofacial CT done on 12/08 ordered by ENT: There is no acute or chronic sinusitis. There was a 1.8 cm hypodense mass in the subcutaneous tissue and lateral to the angle of the left mandible, with enlargement of the masseter and platysma muscles with overlying soft tissue swelling. Abscess versus lymphadenopathy was concerning. IMPRESSION: This is a 61-year-old female who has had a problem with the left side of her cheek and a wisdom tooth that has been infected, status post extraction. 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 Pathology has been sent. Cultures were sent. PLAN: Continue with intravenous (IV) Unasyn at this point 3 grams every six hours. We will wait the results of culture and depending on what the cultures and pathology, will depend on plan of treatment. Thank you for consultation. JOSE
[2016-12-16] MEDS: clonazePAM 0.5 MG TAB PO PRN (12:04)
[2016-12-16] MEDS: NORCO, ANEXSIA 5/325MG TABLET (HYDROcodone/ACETAMINOPHEN) PO PRN (12:05)
[2016-12-16] MEDS ORDERED: COUM1TAB14 PO (14:42)
[2016-12-16] MEDS ORDERED: AUGM875T28 PO (14:42)
--- NOTE | 2016-12-16 14:48 | IPN ---
DATE: 12/16/2016 [place] is doing much better. She wants to go home. She denies any nausea, vomiting, diarrhea, abdominal pain, chest pain or shortness of breath. She has been afebrile. Temperature is 99.5, pulse 76, respirations 16, blood pressure 135/87, oxygen saturation 96% on room air. Heart normal S1 and S2. No murmurs. Lungs are clear. Abdomen is soft, nontender. Left facial abscess with a drain. Swelling has markedly decreased. Erythema around the mandible has diminished. Minimal tenderness. The patient has upper dentures, lower dentures have been removed. IMPRESSION: Impacted wisdom tooth with abscess and a sinus tract. There is concern about actinomyces as the patient has had symptoms for months, possibly years. She states that she has had those dentures for at least 6 years and since then she has had pain in her low lower jaw that would radiate and she always thought it was related to her dentures. About 6 months ago she fell and had more swelling of the mandible until 3 weeks prior to admission when she developed this abscess. PAST SURGICAL HISTORY: In 2007, the patient had surgical removal of 11 teeth that were non restorable and surgical removal of left mandibular torus by Dr. Mathew. Wound culture is positive for E. coli. anaerobic culture is still pending. IMPRESSION: Mandibular abscess from impacted wisdom tooth and a cheek abscess with cellulitis and a sinus tract extending from the mandible to the cheek concerning for actinomyces. I did review the case with pathology, Dr. Cherry, who did not feel that there was any evidence of actinomyces, but chronic inflammation. I did review the case with microbiology, anaerobic cultures are still pending. PLAN: Discharge the patient home on Augmentin 875 mg p.o. b.i.d. for 2 weeks. Further plan of treatment will depend on her clinical improvement as well as results of culture that will be taken care of as an outpatient by Dr. Ortega and myself. The patient could be discharged home today.
[2016-12-16 16:00] VITALS: BP 113/70
[2016-12-16] MEDS ORDERED: WARFARIN SOD 4 MG TAB PO SCH (17:00)
--- NOTE | 2016-12-18 23:01 | DS.PDOC ---
Discharge Summary General Date of Admission Dec 13, 2016 at 18:38 Date of Discharge 12/16/16 Attending Physician: DESTINY SCOTT MD Specialist/Consultants Involve Dr. Armas-Infectious Disease Dr. Orteag-DMD, surgeon Discharge Summary PROCEDURES PERFORMED DURING STAY: incision and drainage of left facial abscess, and surgical extraction of tooth #17 ADMITTING DIAGNOSES: 1. Left dental abscess DISCHARGE DIAGNOSES: 1. Left dental abscess COMPLICATIONS/CHIEF COMPLAINT: Dental Abscess. HISTORY OF PRESENT ILLNESS: Ms. Vargas presented to [facility] ED after seeing ENT Dr. Gautam and dental abscess (left submandibular region) was noted on CT of maxillofacial area that had been worsening over past [address] Gautam had biopsied it, and pt had also seen oral surgeon Dr. Zhong at the office. Pt came to the ED because the abscess was now making it difficult to swallow and pt also experienced sore throat, thus she was advised to visit the ER per Dr. Gautam. On presentation, pt was afebrile, vitals WNL, and pt denied fever, chills, N/V, chest pain, and shortness of breath. HOSPITAL COURSE: During pt's visit, blood cultures were negative and WBC was normal throughout entire stay. Pt was initiated on Clindamycin. Oral Surgeon Dr. Ortega was consulted for the abscess, which was found to be stemming from an impacted wisdom tooth that had formed a sinus tract and fistula extraorally. Pt was transfused 1 unit FFP to assist in making INR <1.6 prior to surgery. On , abscess was incised and drained, and tooth #17 removed. Pathology of abscess revealed "Soft tissue with marked chronic inflammation, composed of dense infiltration by plasma cells and lymphocytes and a smaller component of acute inflammation. Minute bone fragments are noted entrapped in the chronic inflammatory process." Culture of abscess revealed E. Coli, and thus Dr. Armas of Infectious Disease was consulted. Pt was switched to Unasyn. Pt stated she felt improved and requested to go home. She was medically cleared, and it was discussed with Ms. Vargas to continue antibiotic Augmentin 875mg twice a day for 2 weeks, to follow up with PCP by Monday and check INR, and to follow up with Dr. Ortega for wound care, and Dr. Armas on 01/03. Pt verbalized understanding. DISCHARGE MEDICATIONS: Please see below. ALLERGIES: Please see below. PHYSICAL EXAMINATION ON DISCHARGE: VITAL SIGNS: Please see below GENERAL: NAD, A&Ox3, cooperative HEENT: dry mucous membranes, patient s/p incision/drainage of abscess/mass on the superficial aspect of the left submandibular region. Patient's superficial swelling has decreased since before the procedure. Drainage from incision site inside of the mouth NECK: supple, ROM intact CARDIOVASCULAR EXAMINATION: RRR, normal S1 & S2 RESPIRATORY EXAMINATION: CTAB, no wheezing, good air exchange ABDOMINAL EXAMINATION: round, nontender, nondistended EXTREMITIES: no cyanosis, clubbing, edema, tenderness NEUROLOGICAL EXAMINATION: motor and sensation intact. No focal deficits PSYCHIATRIC EXAMINATION: normal mood LABORATORY DATA: Please see below. IMAGIN12/08/[address]: notable for 1.8 cm hypodense mass/abscess in the subcutaneous tissue lateral to the angle of the left mandible PROGNOSIS: good ACTIVITY: As tolerated DIET: regular DISPOSITION: home DISCHARGE INSTRUCTIONS: 1. Follow up with PCP Dr. Umm Skinner by Tuesday 12/19 1pm and check INR 2. Follow up with Dr. Ortega outpatient for wound care 3. Follow up with Dr. Armas outpatient on 01/03 at 11pm 4. Return to ED if symptoms worsen or new emergency arises DISCHARGE CONDITION: Stable TIME SPENT ON DISCHARGE: Greater than 30 minutes. Vital Signs/I&Os Vital Signs Date Time Temp Pulse Resp B/P (MAP) Pulse Ox O2 Delivery O2 Flow Rate FiO2 12/16/16 13:00 20 12/16/16 08:00 99.5 76 135/87 (103) 96 Room Air 12/15/16 04:00 2.0 I&O- Last 24 Hours up to 6 AM 12/16/16 06:00 Intake Total 1030 ml Output Total 1550 ml Balance -520 ml Laboratory Data Labs 24H Laboratory Tests 2 12/16/16 06:17: Prothrombin Time 15.2H, Prothromb Time International Ratio 1.18, Anion Gap 6L, Glomerular Filtration Rate > 60.0, Blood Urea Nitrogen 8, Creatinine 0.64, Sodium Level 143, Potassium Level 4.1, Chloride Level 105, Carbon Dioxide Level 32, Calcium Level 8.7L, Magnesium Level 2.1, C-Reactive Protein, Quantitative 1.02H CBC/BMP Laboratory Tests 12/16/16 06:17 Red Blood Count 3.78 L, Mean Corpuscular Volume 100.5 H, Mean Corpuscular Hemoglobin 31.9, Mean Corpuscular Hemoglobin Concent 31.7 L, Red Cell Distribution Width 12.8, Calcium Level 8.7 L Microbiology Microbiology 12/13/16 Blood Culture - Preliminary, Resulted No Growth after 48 hours. All Specime... 12/13/16 Blood Culture - Preliminary, Resulted No Growth after 48 hours. All Specime... 12/14/16 Gram Stain - Final, Resulted 12/14/16 Abscess Culture - Final, Resulted Escherichia Coli 12/14/16 Anaerobic Culture, Resulted Pending Discharge Medications Scheduled Amitriptyline HCl (Amitriptyline HCl) 150 Mg Tab, 150 MG PO QPM, (Reported) Amoxicillin/Clavulanate Potas (Augmentin 875-125 mg) 1 Tab Tab, 875 MG PO BID Omeprazole (Omeprazole) 40 Mg Cap, 40 MG PO QPM, (Reported) Tramadol HCl (Tramadol HCl) 50 Mg Tab, 50 MG PO QAM, (Reported) Tramadol HCl (Tramadol HCl) 50 Mg Tab, 50 MG PO DAILY, (Reported) Patient takes tramadol in morning and at noon (50mg) Tramadol HCl (Tramadol HCl) 50 Mg Tab, 100 MG PO QHS, (Reported) Warfarin Sod (Coumadin) 4 Mg Tab, 4 MG PO DAILY Scheduled PRN Clonazepam (Clonazepam) 0.5 Mg Tab, 0.5 MG PO TIDP PRN for ANXIETY/AGITATION, ( Reported) Allergies Coded Allergies: Morphine (Verified Allergy, Unknown, 07/11/12) GME ATTESTATION GME ATTESTATION My preceptor for this patient encounter was physically present in the building during the encounter and was fully available. As needed, all aspects of the patient interview, examination, medical decision making process, and medical care plan development were reviewed and approved by the preceptor. Preceptor is aware and concurs with the plan as stated in the body of this note and will attest to such by his/her cosignature. ATA PITTMAN DO Dec 16, 2016 14:53
== END 2016-12-16 18:00 | disposition home or self-care (01) | DRG 574 ==
LOC: M PED 18:38
PROVIDERS: ADMIT Internal Medicine; ATTEND General Practice
PROC: 0CBX0Z0 Excision of Lower Tooth, Open Approach, Single (ICD-10-PCS; 2016-12-14)
PROC: 0WB20ZZ Excision of Face, Open Approach (ICD-10-PCS; principal; 2016-12-14 07:31)
DX: L03.211 Cellulitis of face (principal); D68.2 Hereditary deficiency of other clotting factors; A42.9 Actinomycosis, unspecified; K04.6 Periapical abscess with sinus; K01.1 Impacted teeth; B96.29 Other Escherichia coli [E. coli] as the cause of diseases classified elsewhere; Z79.899 Other long term (current) drug therapy; Z88.5 Allergy status to narcotic agent; K21.9 Gastro-esophageal reflux disease without esophagitis; Z86.711 Personal history of pulmonary embolism; Z86.718 Personal history of other venous thrombosis and embolism; F41.9 Anxiety disorder, unspecified; F32.9 Major depressive disorder, single episode, unspecified; Z85.41 Personal history of malignant neoplasm of cervix uteri; E83.42 Hypomagnesemia; E83.51 Hypocalcemia; K59.00 Constipation, unspecified; Z79.01 Long term (current) use of anticoagulants

== ENCOUNTER 2018-07-28 05:39 | Inpatient (IN) | payer MEDICARE ==
[~2018-07-28] VITALS: Ht 170.2 cm; Wt 90.9 kg
[~2018-07-28 05:39] MED LIST changes: -CLON0.5T PO; +CLON0.5T8 PO
[2018-07-28] MEDS ORDERED: XARE15TA (05:55)
[2018-07-28] MEDS ORDERED: CLINDAMYCIN 600 MG in APPROPRIATE DILUENT 1 EA IV ONE (06:15)
[2018-07-28] MEDS ORDERED: NS 1,000 ML IV ONE (06:15)
[2018-07-28] MEDS ORDERED: ACETAMINOPHEN 500 MG TAB PO ONE (06:15)
[2018-07-28 06:56] LABS: BASO % 0.2 % (0.0-1.0); EOS % 0.2 % (0.0-3.0); HEMOGLOBIN 13.7 g/dl (12.0-15.5); LYMPH # 1.3 10^3/uL (1.5-4.5); LYMPH % 9.4 % (24.0-44.0); MEAN CORPUSCULAR HEMOGLOBIN 32.5 pg (27.0-33.0); MEAN CORPUSCULAR HGB CONC 33.4 g/dl (32.0-36.5); MEAN CORPUSCULAR VOLUME 97.2 fl (80.0-96.0); MONO # 0.8 10^3/uL (0.0-0.8); MONO % 5.9 % (0.0-5.0); NEUTROPHILS # 11.5 10^3/uL (1.8-7.7); NEUTROPHILS % 83.9 % (36.0-66.0); PLATELET COUNT, AUTOMATED 194 10^3/uL (150-450); RED BLOOD COUNT 4.22 10^6/uL (4.00-5.40); WHITE BLOOD COUNT 13.7 10^3/uL (4.0-10.0)
[2018-07-28 07:07] LABS: BLOOD UREA NITROGEN 11 MG/DL (7-18); C REACTIVE PROTEIN QUANTITATIV 0.73 MG/DL (0.00-0.30); CALCIUM LEVEL 8.6 MG/DL (8.8-10.2); CARBON DIOXIDE LEVEL 26 MEQ/L (21-32); CHLORIDE LEVEL 106 MEQ/L (98-107); CREATININE FOR GFR 0.74 MG/DL (0.55-1.30); GLOMERULAR FILTRATION RATE > 60.0 (>45); GLUCOSE, FASTING 112 MG/DL (70-100); POTASSIUM SERUM 3.8 MEQ/L (3.5-5.1); SODIUM LEVEL 139 MEQ/L (136-145)
[2018-07-28] MEDS ORDERED: ISOVUE-370 76% 100ML VIAL (Q9967) As Ordered ONE (07:24)
--- NOTE | 2018-07-28 09:08 | REPVR ---
EXAM: CT Neck With Contrast EXAM DATE/TIME: 07/28/2018 7:31 AM CLINICAL HISTORY: 62 years old, female; Signs and symptoms; Abscess, pharyngeal; Additional info: R/O right lower jaw/oropharyngeal abscess TECHNIQUE: Imaging protocol: Axial computed tomography images of the neck with intravenous contrast. Coronal and sagittal reformatted images were created and reviewed. Radiation optimization: All CT scans at this facility use at least one of these dose optimization techniques: automated exposure control; mA and/or kV adjustment per patient size (includes targeted exams where dose is matched to clinical indication); or iterative reconstruction. Contrast material: ISOVUE 370; Contrast volume: 75 ml; Contrast route: IV; COMPARISON: No relevant prior studies available. FINDINGS: Nasopharynx: Normal. Oropharynx: Normal. No significant tonsillar enlargement. Hypopharynx: Normal. Larynx: Normal. Normal epiglottis. Retropharyngeal space: Normal. Submandibular/Parotid glands: Normal. Glands are normal in size. Thyroid: Normal. No enlarged or calcified nodules. Lymph nodes: Right cervical and submandibular adenopathy. Trachea: Visualized trachea is unremarkable. Lungs: Normal as visualized. Vasculature: No acute findings. Dental: Extensive soft tissue edema in the left neck appears to be centered in the agronomy advisor space. Suspect small periodontal abscess adjacent to the lucency at the root of the right mandibular molar remnant although the collection is somewhat ill-defined. Bones/joints: Severe degenerative disc disease at C5-6 and C6-7. Stenosis of the spinal canal and right neural foramen at C5-6. IMPRESSION: Extensive soft tissue edema in the left neck appears to be centered in the agronomy advisor space. Suspect small periodontal abscess adjacent to the lucency at the root of the right mandibular molar remnant although the collection is somewhat ill-defined. Electronically signed by: Riccardo Clancy On 07/28/2018 09:07:59 AM
[2018-07-28] MEDS ORDERED: oxyCODONE 5MG TAB PO ONE (10:00)
[2018-07-28] MEDS ORDERED: ONDANSETRON 4MG/2ML VIAL (J2405) IV ONE (10:00)
[2018-07-28] MEDS ORDERED: AMPICILLIN SOD/SULBACTAM SOD 3 GM in D5W MINI-BAG PLUS 100 ML IV ONE (10:00)
[2018-07-28 10:07] LABS: INR 1.24; PROTHROMBIN TIME 15.8 SECONDS (12.1-14.4)
--- NOTE | 2018-07-28 11:57 | HPEPDOC ---
[facility] Medical History & Physical Date of Admission Jul 28, 2018 History and Physical CHIEF COMPLAINT: Dental pain HISTORY OF PRESENT ILLNESS: 62 yo female presents for 1 day history of dental pain. Denies fevers, chills, nausea, vomiting, diarrhea, chest pain, shortness of breath, headaches. PAST MEDICAL HISTORY: 1. Factor V Leiden 2. DVT's/PE, last in September 2017 3. cervical CA s/p chemo/RT 2007 4. depression PAST SURGICAL HISTORY: 1. IVC filter ALLERGIES: Please see below. REVIEW OF SYSTEMS: Negative except as per HPI. HOME MEDICATIONS: Please see below. PHYSICAL EXAMINATION: VSS General: NAD, lying comfortably in bed HEENT: NC/AT, EOMI, right mandible pain Lungs: CTA B/L Heart: +S1S2, RRR Abd: soft, obese, NT, +BS Ext: no edema LABORATORY DATA: See below. IMAGING: CT neck suspicious for periodontal abscess. MICROBIOLOGY: Please see below. ASSESSMENT: 62 yo female for periodontal abscess with PMHx Factor V Leiden on a nti-coagulation. Plan: #dental abscess - IV Unasyn - NPO after midnight for planned surgical intervention/I&D tomorrow at 7am - d/w oral surgery, assistance appreciated, further direction as per oral surgery #Factor V Leiden - Xarelto on hold, last dose 07/28 1999, therapeutic lovenox 07/29 1999, planned procedure 07/29 0700, resume a/c 07/29 evening as per oral surgery Vital Signs Vital Signs Date Time Temp Pulse Resp B/P (MAP) Pulse Ox O2 Delivery O2 Flow Rate FiO2 07/28/18 11:09 18 07/28/18 05:48 07/28/18 05:40 98.5 92 97 Room Air Laboratory Data Labs 24H Laboratory Tests 2 07/28/18 06:21: Prothrombin Time 15.8H, Prothromb Time International Ratio 1.24 07/28/18 06:32: Immature Granulocyte % (Auto) 0.4, White Blood Count 13.7H, Red Blood Count 4.22, Hemoglobin 13.7, Hematocrit 41.0, Mean Corpuscular Volume 97.2H, Mean Corpuscular Hemoglobin 32.5, Mean Corpuscular Hemoglobin Concent 33.4, Red Cell Distribution Width 13.1, Platelet Count 194, Neutrophils (%) (Auto) 83.9H, Lymphocytes (%) (Auto) 9.4L, Monocytes (%) (Auto) 5.9H, Eosinophils (%) (Auto) 0.2, Basophils (%) (Auto) 0.2, Neutrophils # (Auto) 11.5H, Lymphocytes # (Auto) 1.3L, Monocytes # (Auto) 0.8, Eosinophils # (Auto) 0.0, Basophils # (Auto) 0.0, Nucleated Red Blood Cells % (auto) 0.0, Anion Gap 7L, Glomerular Filtration Rate > 60.0, Blood Urea Nitrogen 11, Creatinine 0.74, Sodium Level 139, Potassium Level 3.8, Chloride Level 106, Carbon Dioxide Level 26, Calcium Level 8.6L, C- Reactive Protein, Quantitative 0.73H CBC/BMP Laboratory Tests 07/28/18 06:32 Red Blood Count 4.22, Mean Corpuscular Volume 97.2 H, Mean Corpuscular Hemoglobin 32.5, Mean Corpuscular Hemoglobin Concent 33.4, Red Cell Distribution Width 13.1, Neutrophils (%) (Auto) 83.9 H, Lymphocytes (%) (Auto) 9.4 L, Monocytes (%) (Auto) 5.9 H, Eosinophils (%) (Auto) 0.2, Basophils (%) (Auto) 0.2, Neutrophils # (Auto) 11.5 H, Lymphocytes # (Auto) 1.3 L, Monocytes # (Auto) 0.8, Eosinophils # (Auto) 0.0, Basophils # (Auto) 0.0, Calcium Level 8.6 L Home Medications Scheduled Amitriptyline HCl (Amitriptyline HCl) 150 Mg Tab, 150 MG PO QPM Omeprazole (Omeprazole) 40 Mg Cap, 40 MG PO QPM Tramadol HCl (Tramadol HCl) 50 Mg Tab, 50 MG PO QAM Scheduled PRN Clonazepam (Clonazepam) 0.5 Mg Tab, 0.5 MG PO TIDP PRN for ANXIETY/AGITATION Miscellaneous Medications Rivaroxaban (Xarelto) 15 Mg Tablet Allergies Coded Allergies: morphine (Verified Allergy, Unknown, 07/28/18) ZAID MARIA MD Jul 28, 2018 11:57
[2018-07-28] MEDS ORDERED: XARE20TA PO (12:21)
[2018-07-28] MEDS ORDERED: SUMA50TA2 PO (12:22)
[2018-07-28] MEDS ORDERED: TRAM50TA2 PO (12:24)
[2018-07-28 13:50] LABS: ERYTHROCYTE SEDIMENTATION RATE 38 mm/hr (0-30)
[2018-07-28 14:00] VITALS: BP 153/90
[2018-07-28] MEDS ORDERED: oxyCODONE 5MG TAB PO PRN (14:15)
[2018-07-28] MEDS ORDERED: SUMAtriptan SUCCINATE 25 MG TAB PO PRN (15:45)
[2018-07-28] MEDS: AMPICILLIN SOD/SULBACTAM SOD 3 GM in D5W MINI-BAG PLUS 100 ML IV SCH ×2 (16:10→22:00)
[2018-07-28] MEDS: traMADol 50 MG TAB PO PRN ×2 (16:10→21:41)
[2018-07-28] MEDS: ACETAMINOPHEN 500 MG TAB PO PRN ×2 (17:07→21:42)
[2018-07-28] MEDS ORDERED: ENOXAPARIN 80 MG/0.8 ML SYRINGE (J1650) SC ONE (20:00)
[2018-07-28] MEDS: AMITRIPTYLINE 50 MG TAB PO SCH (20:07)
[2018-07-28] MEDS: OMEPRAZOLE 20 MG CAP PO SCH (20:07)
[2018-07-28 20:24] VITALS: BP 153/98
[2018-07-28] MEDS ORDERED: ACETAMINOPHEN 325 MG TAB PO ONE (21:30)
[2018-07-28] MEDS: D5W/0.45% SODIUM CHLORIDE 1,000 ML IV SCH (22:00)
[2018-07-29] VITALS (10 sets, daily range): BP systolic 101–153; BP diastolic 64–84
[2018-07-29] MEDS: ACETAMINOPHEN 500 MG TAB PO PRN ×3 (03:47→18:19)
[2018-07-29] MEDS: AMPICILLIN SOD/SULBACTAM SOD 3 GM in D5W MINI-BAG PLUS 100 ML IV SCH ×4 (03:47→20:38)
[2018-07-29] MEDS: clonazePAM 0.5 MG TAB PO PRN ×2 (05:32→20:37)
[2018-07-29 07:09] LABS: BASO % 0.2 % (0.0-1.0); EOS % 0.4 % (0.0-3.0); HEMATOCRIT 37.6 % (36.0-47.0); HEMOGLOBIN 12.4 g/dl (12.0-15.5); LYMPH # 1.2 10^3/uL (1.5-4.5); LYMPH % 12.7 % (24.0-44.0); MEAN CORPUSCULAR HEMOGLOBIN 32.1 pg (27.0-33.0); MEAN CORPUSCULAR VOLUME 97.4 fl (80.0-96.0); MONO # 0.7 10^3/uL (0.0-0.8); MONO % 7.9 % (0.0-5.0); NEUTROPHILS # 7.4 10^3/uL (1.8-7.7); NEUTROPHILS % 78.4 % (36.0-66.0); PLATELET COUNT, AUTOMATED 227 10^3/uL (150-450); RED BLOOD COUNT 3.86 10^6/uL (4.00-5.40); WHITE BLOOD COUNT 9.4 10^3/uL (4.0-10.0)
[2018-07-29 07:19] LABS: BLOOD UREA NITROGEN 6 MG/DL (7-18); CALCIUM LEVEL 8.5 MG/DL (8.8-10.2); CARBON DIOXIDE LEVEL 28 MEQ/L (21-32); CHLORIDE LEVEL 107 MEQ/L (98-107); CREATININE FOR GFR 0.67 MG/DL (0.55-1.30); GLOMERULAR FILTRATION RATE > 60.0 (>45); GLUCOSE, FASTING 126 MG/DL (70-100); POTASSIUM SERUM 3.3 MEQ/L (3.5-5.1); SODIUM LEVEL 141 MEQ/L (136-145)
[2018-07-29] MEDS: D5W/0.45% SODIUM CHLORIDE 1,000 ML IV SCH ×2 (07:30→09:56)
[2018-07-29] MEDS ORDERED: LIDOCAINE 2% W/ EPINEPHRINE 1.7 ML DENTAL INJ As Ordered ONE (07:53)
[2018-07-29] MEDS ORDERED: dexameTHASONE 4 MG/ML 1ML VIAL (J1100) As Ordered ONE ×2 (08:18→08:43)
[2018-07-29] MEDS ORDERED: METOCLOPRAMIDE INJ 10MG/2ML VIAL (J2765) As Ordered ONE ×2 (08:43→09:58)
[2018-07-29] MEDS ORDERED: PROPOFOL 200 MG/20 ML VIAL As Ordered ONE (08:43)
[2018-07-29] MEDS ORDERED: fentaNYL 100 MCG/2 ML INJECTION (J3010) As Ordered ONE ×3 (08:43→09:31)
[2018-07-29] MEDS ORDERED: ROCURONIUM BROMIDE 50 MG/5 ML VIAL As Ordered ONE (08:43)
[2018-07-29] MEDS ORDERED: LIDOCAINE 2% INJ 100 MG/5 ML SDV (FOR ANES.) As Ordered ONE (08:43)
[2018-07-29] MEDS ORDERED: SUCCINYLCHOLINE 100 MG/5 ML SYRINGE (J0330) As Ordered ONE (08:43)
[2018-07-29] MEDS ORDERED: MIDAZOLAM INJ 2 MG/2 ML VIAL (J2250) As Ordered ONE (08:43)
[2018-07-29] MEDS ORDERED: ONDANSETRON 4MG/2ML VIAL (J2405) As Ordered ONE ×2 (08:43→09:45)
[2018-07-29] MEDS ORDERED: dexameTHASONE 4 MG/ML 1ML VIAL (J1100) IV ONE (08:45)
[2018-07-29] MEDS ORDERED: DESFLURANE 240 ML INHALANT As Ordered ONE (08:46)
[2018-07-29] MEDS ORDERED: SUGAMMADEX SODIUM 500 MG/5 ML VIAL (BRIDION) As Ordered ONE (08:48)
--- NOTE | 2018-07-29 09:13 | REP ---
Panorex view of the mandible: Comparison is the maxillofacial CT dated 2016. There are persisting tooth roots of the right third mandible. This is unchanged from the comparison study. On the comparison study there were persisting tooth roots of the left third mandible. These are no longer present. No fracture is identified. There are no lytic, blastic or destructive skeletal changes. Electronically Signed by Dakota Villeda MD 07/28/2018 11:26 A
[2018-07-29] MEDS ORDERED: PERCOCET 5MG/325MG TAB As Ordered ONE (09:39)
[2018-07-29] MEDS ORDERED: ONDANSETRON 4MG/2ML VIAL (J2405) IV PRN (10:00)
[2018-07-29] MEDS ORDERED: PERCOCET 5MG/325MG TAB PO PRN (10:00)
[2018-07-29] MEDS ORDERED: MEPERIDINE INJ 25 MG/ML VIAL (J2175) IV PRN (10:00)
[2018-07-29] MEDS ORDERED: METOCLOPRAMIDE INJ 10MG/2ML VIAL (J2765) IV PRN (10:00)
[2018-07-29] MEDS ORDERED: LR 1,000 ML IV SCH (10:00)
[2018-07-29] MEDS ORDERED: fentaNYL 100 MCG/2 ML INJECTION (J3010) IV PRN (10:00)
[2018-07-29] MEDS: traMADol 50 MG TAB PO SCH (10:28)
--- NOTE | 2018-07-29 12:39 | IPNPDOC ---
Text Note Date of Service The patient was seen on 07/29/18. NOTE Subjective: patient seen and examined at bedside. Underwent I&D of dental abs cess this morning. Presently has no medical complaints. Objective: General: NAD, lying comfortably in bed Lungs: CTA B/L Heart: +S1S2, RRR Abd: soft, obese, NT, +BS Ext: no edema A/P: 62 yo female presents for 1 day history of dental pain, found to have periodontal abscess s/p surgical intervention this morning. #dental abscess - follow as per oral surgery - assistance appreciated - continue IV Unasyn, full liquid diet, start Lovenox tonight #Factor V Leiden - Xarelto on hold, last dose 07/28 1999, therapeutic lovenox - resuming a/c as per oral surgery Dispo: anticipating discharge in 24 hours; home with abx, resume DOAC VS,Fishbone, I+O VS, Fishbone, I+O Laboratory Tests 07/29/18 06:19 Red Blood Count 3.86 L, Mean Corpuscular Volume 97.4 H, Mean Corpuscular Hemoglobin 32.1, Mean Corpuscular Hemoglobin Concent 33.0, Red Cell Distribution Width 13.2, Neutrophils (%) (Auto) 78.4 H, Lymphocytes (%) (Auto) 12.7 L, Monocytes (%) (Auto) 7.9 H, Eosinophils (%) (Auto) 0.4, Basophils (%) (Auto) 0.2, Neutrophils # (Auto) 7.4, Lymphocytes # (Auto) 1.2 L, Monocytes # (Auto) 0.7, Eosinophils # (Auto) 0.0, Basophils # (Auto) 0.0, Calcium Level 8.5 L Vital Signs Date Time Temp Pulse Resp B/P (MAP) Pulse Ox O2 Delivery O2 Flow Rate FiO2 07/29/18 12:33 98.9 82 17 135/77 (96) 98 07/29/18 09:40 1 07/28/18 13:48 Room Air I&O- Last 24 Hours up to 6 AM 07/29/18 06:00 Intake Total 2410 ml Output Total 1300 ml Balance 1110 ml ZAID MARIA MD Jul 29, 2018 12:39
[2018-07-29 12:54] LABS: MAGNESIUM LEVEL 1.6 MG/DL (1.8-2.4)
[2018-07-29] MEDS ORDERED: POTASSIUM CHLORIDE 10% LIQ 20 MEQ/15 ML UDC PO ONE (13:00)
[2018-07-29] MEDS ORDERED: MAG SULF 1GM/100ML (MAG RUN) 1 GM in APPROPRIATE DILUENT 1 EA IV ONE (13:15)
[2018-07-29] MEDS ORDERED: ENOXAPARIN 80 MG/0.8 ML SYRINGE (J1650) SC ONE (20:00)
[2018-07-29] MEDS: AMITRIPTYLINE 50 MG TAB PO SCH (20:37)
[2018-07-29] MEDS: OMEPRAZOLE 20 MG CAP PO SCH (20:37)
[2018-07-30] VITALS: BP 141/80
[2018-07-30] MEDS: traMADol 50 MG TAB PO PRN (00:38)
[2018-07-30] MEDS: ACETAMINOPHEN 500 MG TAB PO PRN ×2 (02:25→10:24)
[2018-07-30 04:00] VITALS: BP 150/72
[2018-07-30] MEDS: AMPICILLIN SOD/SULBACTAM SOD 3 GM in D5W MINI-BAG PLUS 100 ML IV SCH (04:50)
[2018-07-30] MEDS: D5W/0.45% SODIUM CHLORIDE 1,000 ML IV SCH (05:01)
[2018-07-30] MEDS ORDERED: AMOX875T2 PO (06:50)
[2018-07-30] MEDS ORDERED: HYDR-3713 PO ×2 (06:50→07:56)
[2018-07-30] MEDS ORDERED: ENOXAPARIN 80 MG/0.8 ML SYRINGE (J1650) SC ONE (07:00)
[2018-07-30] MEDS ORDERED: ACET-683 PO (07:06)
[2018-07-30 07:19] LABS: BASO % 0.3 % (0.0-1.0); EOS % 0.2 % (0.0-3.0); HEMATOCRIT 38.4 % (36.0-47.0); HEMOGLOBIN 12.3 g/dl (12.0-15.5); LYMPH # 2.6 10^3/uL (1.5-4.5); MEAN CORPUSCULAR HEMOGLOBIN 31.1 pg (27.0-33.0); MEAN CORPUSCULAR VOLUME 97.2 fl (80.0-96.0); MONO # 0.6 10^3/uL (0.0-0.8); MONO % 5.6 % (0.0-5.0); NEUTROPHILS # 7.9 10^3/uL (1.8-7.7); NEUTROPHILS % 70.5 % (36.0-66.0); PLATELET COUNT, AUTOMATED 238 10^3/uL (150-450); RED BLOOD COUNT 3.95 10^6/uL (4.00-5.40); WHITE BLOOD COUNT 11.2 10^3/uL (4.0-10.0)
[2018-07-30 07:38] LABS: BLOOD UREA NITROGEN 5 MG/DL (7-18); CALCIUM LEVEL 8.6 MG/DL (8.8-10.2); CARBON DIOXIDE LEVEL 29 MEQ/L (21-32); CHLORIDE LEVEL 109 MEQ/L (98-107); CREATININE FOR GFR 0.79 MG/DL (0.55-1.30); GLOMERULAR FILTRATION RATE > 60.0 (>45); GLUCOSE, FASTING 101 MG/DL (70-100); MAGNESIUM LEVEL 1.7 MG/DL (1.8-2.4); POTASSIUM SERUM 3.1 MEQ/L (3.5-5.1); SODIUM LEVEL 143 MEQ/L (136-145)
[2018-07-30] MEDS: clonazePAM 0.5 MG TAB PO PRN (07:47)
[2018-07-30] MEDS: traMADol 50 MG TAB PO SCH (07:48)
--- NOTE | 2018-07-30 07:58 | DS.PDOC ---
Discharge Summary General Date of Admission Jul 28, 2018 at 11:49 Date of Discharge 07/30/18 Specialist/Consultants Involve: ELLYN MEZA DMD Discharge Summary PROCEDURES PERFORMED DURING STAY: I&D dental abscess - oral surgery ADMITTING DIAGNOSES: 1. periodontal abscess SECONDARY DIAGNOSES: 1. Factor V Leiden 2. 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 cervical CA s/p chemo/RT 2007 4. depression COMPLICATIONS/CHIEF COMPLAINT: Dental Abscess. HOSPITAL COURSE: 62 yo female presented for 1 day history of dental pain. Denied fevers, chills, nausea, vomiting, diarrhea, chest pain, shortness of breath, headaches. Seen in consultation by oral surgery, underwent I&D. Her Eliquis was held, and bridged with SC Lovenox. Resumed Eliquis on discharge as per oral sx recs. Discharged home in stable condition with PO antibiotics and o/p follow up. DISCHARGE MEDICATIONS: Please see below. ALLERGIES: Please see below. PHYSICAL EXAMINATION ON DISCHARGE: VITAL SIGNS: Please see below. General: NAD, lying comfortably in bed HEENT: NC/AT, EOMI Lungs: CTA B/L Heart: +S1S2, RRR Abd: soft, obese, NT, +BS Ext: no edema LABORATORY DATA: Please see below. ACTIVITY: [As tolerated]. DISCHARGE PLAN: Discharge home. DISCHARGE INSTRUCTIONS: 1. Follow up oral surgery Dr. Meza in one week. 2. PCP in 3-5 days. DISCHARGE CONDITION: [Stable]. TIME SPENT ON DISCHARGE: Greater than 30 minutes. Electronic transmission of controlled substances system not working, paper prescription provided to patient. Vital Signs/I&Os Vital Signs Date Time Temp Pulse Resp B/P (MAP) Pulse Ox O2 Delivery O2 Flow Rate FiO2 07/30/18 07:48 18 07/30/18 04:00 98.5 73 150/72 (98) 95 07/29/18 09:40 1 07/28/18 13:48 Room Air I&O- Last 24 Hours up to 6 AM 07/30/18 06:00 Intake Total 3550 ml Output Total 910 ml Balance 2640 ml Laboratory Data Labs 24H Laboratory Tests 2 07/30/18 07:00: Immature Granulocyte % (Auto) 0.4, White Blood Count 11.2H, Red Blood Count 3.95L, Hemoglobin 12.3, Hematocrit 38.4, Mean Corpuscular Volume 97.2H, Mean Corpuscular Hemoglobin 31.1, Mean Corpuscular Hemoglobin Concent 32.0, Red Cell Distribution Width 13.1, Platelet Count 238, Neutrophils (%) (Auto) 70.5H, Lymphocytes (%) (Auto) 23.0L, Monocytes (%) (Auto) 5.6H, Eosinophils (%) (Auto) 0.2, Basophils (%) (Auto) 0.3, Neutrophils # (Auto) 7.9H, Lymphocytes # (Auto) 2.6, Monocytes # (Auto) 0.6, Eosinophils # (Auto) 0.0, Basophils # (Auto) 0.0, Nucleated Red Blood Cells % (auto) 0.0, Anion Gap 5L, Glomerular Filtration Rate > 60.0, Blood Urea Nitrogen 5L, Creatinine 0.79, Sodium Level 143, Potassium Level 3.1L, Chloride Level 109H, Carbon Dioxide Level 29, Calcium Level 8.6L, Magnesium Level 1.7L CBC/BMP Laboratory Tests 07/30/18 07:00 Red Blood Count 3.95 L, Mean Corpuscular Volume 97.2 H, Mean Corpuscular Hemoglobin 31.1, Mean Corpuscular Hemoglobin Concent 32.0, Red Cell Distribution Width 13.1, Neutrophils (%) (Auto) 70.5 H, Lymphocytes (%) (Auto) 23.0 L, Monocytes (%) (Auto) 5.6 H, Eosinophils (%) (Auto) 0.2, Basophils (%) (Auto) 0.3, Neutrophils # (Auto) 7.9 H, Lymphocytes # (Auto) 2.6, Monocytes # (Auto) 0.6, Eosinophils # (Auto) 0.0, Basophils # (Auto) 0.0, Calcium Level 8.6 L Microbiology Microbiology 07/29/18 Gram Stain - Final, Resulted 07/29/18 Abscess Culture, Resulted Pending 07/29/18 Anaerobic Culture, Resulted Pending Discharge Medications Scheduled Amitriptyline HCl (Amitriptyline HCl) 150 Mg Tab, 150 MG PO QHS, (Reported) Amoxicillin/Potassium Clav (Amox-Clav 875-125 mg Tablet) 1 Each Tablet, 1 TAB PO BID Omeprazole (Omeprazole) 40 Mg Cap, 40 MG PO QHS, (Reported) Rivaroxaban (Xarelto) 20 Mg Tablet, 20 MG PO QHS, (Reported) Tramadol HCl (Tramadol HCl) 50 Mg Tab, 50 MG PO QAM, (Reported) Scheduled PRN Acetaminophen (Acetaminophen) 500 Mg Tablet, 1,000 MG PO Q8HP PRN for PAIN Clonazepam (Clonazepam) 0.5 Mg Tab, 0.5 MG PO TID PRN for ANXIETY/AGITATION, (Reported) Hydrocodone/Acetaminophen (Hydrocodone-Acetamin 5-325 mg) 1 Each Tablet, 1 TAB PO TIDP PRN for pain Sumatriptan Succinate (Sumatriptan Succinate) 50 Mg Tablet, 50 MG PO DAILY PRN for MIGRAINE, (Reported) Tramadol HCl (Tramadol HCl) 50 Mg Tablet, 50 MG PO TID PRN for PAIN, (Reported) Allergies Coded Allergies: morphine (Verified Adverse Reaction, Mild, Nausea/vomiting, 07/29/18) confirmed with pt 1000 07/29/2018 ZAID MARIA MD Jul 30, 2018 07:58
[2018-07-30 08:00] VITALS: BP 152/83
--- NOTE | 2018-07-30 10:44 | RO ---
DATE OF PROCEDURE: 07/29/2018 PREOPERATIVE DIAGNOSIS: Right facial abscess as well as impacted and carious mal positioned tooth #32. POSTOPERATIVE DIAGNOSIS: Status post the above. PROCEDURE PERFORMED: Surgical extraction of tooth #32 as well as an incision and drainage of the aforementioned abscess. ATTENDING SURGEON: Roosevelt Ortega DMD [employer]ABLE [employer] TECHNICIAN: ANESTHESIA: General endotracheal anesthesia via nasal LISBETH. ESTIMATED BLOOD LOSS: 10 mL. SPECIMENS: Cultures were sent for aerobes, anaerobes and sensitivity. Tooth for gross only. INDICATIONS FOR SURGERY: [place] is a pleasant 62-year-old female who reported to the emergency room yesterday complaining of worsening tooth pain and right facial swelling. She reports that she wears a denture and that she has no teeth; however, the denture has been harder and harder to fit appropriately for the last 6-8 weeks. She has had pain and swelling in her lower jaw on the right side and yesterday this was accompanied by difficulty swallowing, fever and chills. She reported to the emergency room. She was examined. I was then called for further evaluation and management. On clinical examination, she does have mild right mid face swelling in the right cheek area with a neck that is very soft, however, very tender to palpation with mild adenopathy. She does not have any teeth, therefore, she is edentulous. She does have a small area of draining purulence in the right retromolar area. The vestibule in that area is elevated and tender to palpation with erythema. There is no swelling or any signs of infection of the floor of the mouth. Her mouth opening is limited to about 25 mm. To note, she does have a history of a similar episode that happened about 2 years ago where she had an impacted wisdom tooth #17 that led to a left facial infection that I myself drained and treated in the hospital. Further examination reveals a white count 13,000 and she is afebrile. Her vital signs are stable. A panoramic x-ray was reviewed and it does show an impacted and grossly decayed, horizontally impacted, #32. All the risks, benefits and alternatives to the treatment were explained to the patient. She will need to have an incision and drainage and removal of tooth #32 in an operating room setting. As mentioned, history and physical was completed and the chart as well as the consent was signed. DESCRIPTION OF PROCEDURE: Any last minute questions were addressed. The informed consent was updated. Her a.m. Lovenox medication was held. At this point, the patient was taken back to the operating room and was placed supine on the operating table. Ulnar nerve protectors were placed. Noninvasive cardiac monitors were applied. At that point, she underwent general anesthesia and was intubated with a nasal LISBETH, which was then secured to the patient's forehead. She was then prepped and draped in the usual sterile fashion. A time out procedure was performed to identify the patient, the procedure and any other precautions. A moist throat pack was inserted in the patient's oropharynx followed by the administration of 2 carpules of 2% lidocaine with 1:100,000 epinephrine as local infiltration block. A 15 blade was then used to make an incision along the crest of the right posterior mandible with a hockey stick buccal extension. The flap was fully reflected. An abundant purulence was noted overlying the carious impacted wisdom tooth. Cultures were taken for aerobes, anaerobes and sensitivities. At this point, all the purulent necrotic tissue was then curetted out with ease. A Surgitome was then used to make a buccal distal and medial trough around tooth #32 and the tooth was then sectioned buccolingually and subluxated and the halves were then removed in their entirety. The socket was opened irrigated and curetted. The inferior alveolar nerve was not noted. The limbal cortex was well impacted. Further dissection subperiosteally in the buccal aspect all the way down to the inferior border of the mandible with no evidence of any purulent material or necrotic tissue. Abundant irrigation was performed at this point. The wound edges were closed primarily with #3-0 Vicryl sutures as well as one #3-0 chromic suture. The oral cavity was irrigated and suctioned. The throat pack was removed and the patient was awakened from general anesthesia and taken back to the post anesthesia care unit. COMPLICATIONS: None mentioned at the time of surgery. ESTIMATED BLOOD LOSS: 10 mL. DRAINS: There were no drains placed.
== END 2018-07-30 10:50 | disposition home or self-care (01) | DRG 158 ==
LOC: M ED 05:39 → M ED INP 11:49 → M PED 13:55
PROVIDERS: ADMIT Internal Medicine; ATTEND Internal Medicine
PROC: 0N9T0ZZ Drainage of Right Mandible, Open Approach (ICD-10-PCS; 2018-07-29)
PROC: 0CDXXZ0 Extraction of Lower Tooth, Single, External Approach (ICD-10-PCS; principal; 2018-07-29 08:00)
DX: K01.1 Impacted teeth (principal); L02.01 Cutaneous abscess of face; D68.2 Hereditary deficiency of other clotting factors; F32.9 Major depressive disorder, single episode, unspecified; Z86.711 Personal history of pulmonary embolism; Z86.718 Personal history of other venous thrombosis and embolism; Z85.41 Personal history of malignant neoplasm of cervix uteri; Z88.5 Allergy status to narcotic agent; K02.9 Dental caries, unspecified; Z79.899 Other long term (current) drug therapy

== ENCOUNTER → 2021-05-11 | Outpatient (POV) | payer MEDICARE ==
[~2021-05-11] VITALS: Ht 170.2 cm; Wt 95.4 kg
[~2021-05-11] MED LIST changes: +ACET-683 PO; +AMOX875T2 PO; +CLON0.5T2 PO; -CLON0.5T8 PO; -COUM1TAB14 PO; +COUM4TAB8 PO; +HYDR-3713 PO; -OMEP40CA2 PO; +OMEP40CA4 PO; +SUMA50TA2 PO; +XARE15TA; +XARE20TA PO
[2021-05-11 15:05] VITALS: BP 148/90
== END ==
LOC: M IRPOV 14:54
PROVIDERS: ATTEND Radiology Diagnostic Radiology
DX: I87.012 Postthrombotic syndrome with ulcer of left lower extremity (principal); I87.093 Postthrombotic syndrome with other complications of bilateral lower extremity; I87.2 Venous insufficiency (chronic) (peripheral); L97.229 Non-pressure chronic ulcer of left calf with unspecified severity; R20.2 Paresthesia of skin; Z79.899 Other long term (current) drug therapy; Z88.5 Allergy status to narcotic agent; Z86.711 Personal history of pulmonary embolism; Z86.718 Personal history of other venous thrombosis and embolism; Z95.828 Presence of other vascular implants and grafts

== ENCOUNTER → 2021-05-20 | Outpatient (CLI) | payer MEDICARE ==
[~2021-05-20] MED LIST changes: +ISOVUE-300 61% 50ML VIAL As Ordered ONE; +LEVO-88 PO; +LIDOCAINE 1% MDV 20ML VIAL As Ordered ONE; +MIDAZOLAM INJ 2MG/2ML VIAL (J2250 PER 1MG) As Ordered ONE; +NS 1,000 ML IV SCH; +diphenhydrAMINE 50MG/ML VIAL (J1200) As Ordered ONE; +fentaNYL 100 MCG/2 ML INJECTION As Ordered ONE
[2021-05-20 17:18] VITALS: BP 123/60
== END ==
LOC: M IRPRO 10:31
PROVIDERS: ATTEND Radiology Diagnostic Radiology
DX: I87.002 Postthrombotic syndrome without complications of left lower extremity (principal); L97.929 Non-pressure chronic ulcer of unspecified part of left lower leg with unspecified severity; Z86.718 Personal history of other venous thrombosis and embolism
CPT/HCPCS: 36011; 75820; 99152; 99153; C1769; C1894; J1644; J2250; J3010; Q9967

== ENCOUNTER → 2021-06-08 | Outpatient (POV) | payer MEDICARE ==
[~2021-06-08] VITALS: Ht 170.2 cm; Wt 94.5 kg
[~2021-06-08] MED LIST changes: -ISOVUE-300 61% 50ML VIAL As Ordered ONE; -LIDOCAINE 1% MDV 20ML VIAL As Ordered ONE; -MIDAZOLAM INJ 2MG/2ML VIAL (J2250 PER 1MG) As Ordered ONE; -NS 1,000 ML IV SCH; -diphenhydrAMINE 50MG/ML VIAL (J1200) As Ordered ONE; -fentaNYL 100 MCG/2 ML INJECTION As Ordered ONE
[2021-06-08 09:10] VITALS: BP 156/74
== END ==
LOC: M IRPOV 09:02
PROVIDERS: ATTEND Radiology Diagnostic Radiology
DX: I87.2 Venous insufficiency (chronic) (peripheral) (principal); R22.43 Localized swelling, mass and lump, lower limb, bilateral; M79.604 Pain in right leg; M79.605 Pain in left leg; Z86.718 Personal history of other venous thrombosis and embolism; Z95.828 Presence of other vascular implants and grafts

== ENCOUNTER → 2021-11-25 | Outpatient (CLI) | payer MEDICARE ==
[~2021-11-25] MED LIST changes: +DICY10CA13 PO; +DIPH2.5T14 PO
== END ==
LOC: M LABSMTC 10:02
PROVIDERS: ATTEND Anesthesiology
DX: Z01.812 Encounter for preprocedural laboratory examination (principal); Z11.52 Encounter for screening for COVID-19

== ENCOUNTER 2021-11-30 09:05 | Observation (INO) | payer MEDICARE ==
[~2021-11-30] VITALS: Ht 170.2 cm; Wt 89.4 kg
[~2021-11-30 09:05] MED LIST changes: +HEPARIN SOD (PORCINE) 5000UNITS/ML 1ML VIAL/SYRINGE SQ ONE; +ceFAZolin SOD 2 GM in IV 1 EA IV ONE
[2021-11-30] MEDS ORDERED: LR 1,000 ML IV SCH ×3 (10:05→17:40)
[2021-11-30] MEDS ORDERED: SCOPOLAMINE 1MG TRANSDERMAL PATCH TOP STA (11:28)
[2021-11-30] MEDS ORDERED: BUPIVACAINE HCL 0.25% 10ML VIAL As Ordered ONE (11:50)
[2021-11-30] MEDS ORDERED: GENTAMICIN SULF 80MG/2ML VIAL As Ordered ONE (11:51)
[2021-11-30] MEDS ORDERED: BUPIVACAINE LIPOSOME/PF 1.3% 20ML VIAL (13.3MG/ML)(EXPAREL) As Ordered ONE (11:51)
[2021-11-30] MEDS ORDERED: dexameTHASONE 4 MG/ML 1ML VIAL (J1100 PER 1MG) As Ordered ONE (13:45)
[2021-11-30] MEDS ORDERED: ROCURONIUM BROMIDE 50 MG/5 ML VIAL As Ordered ONE ×2 (13:45→16:25)
[2021-11-30] MEDS ORDERED: MIDAZOLAM INJ 2MG/2ML VIAL (J2250 PER 1MG) As Ordered ONE (13:45)
[2021-11-30] MEDS ORDERED: propofoL 200 MG/20 ML VIAL As Ordered ONE ×2 (13:45→17:04)
[2021-11-30] MEDS ORDERED: fentaNYL 250 MCG/5 ML INJECTION As Ordered ONE (13:45)
[2021-11-30] MEDS ORDERED: LIDOCAINE 2% 100MG/5ML SDV (FOR ANES.) As Ordered ONE (13:45)
[2021-11-30] MEDS ORDERED: ACETAMINOPHEN 1000MG 100ML IV BTL (OFIRMEV) (J0131 PER 10MG) As Ordered ONE (13:48)
[2021-11-30] MEDS ORDERED: HYDROmorphone HCL 2MG/ML 1ML VIAL As Ordered ONE (14:26)
[2021-11-30] MEDS ORDERED: ONDANSETRON 4MG 2ML VIAL As Ordered ONE ×2 (15:25→15:28)
[2021-11-30] MEDS ORDERED: SUGAMMADEX SODIUM 500 MG/5 ML VIAL (BRIDION) As Ordered ONE (15:26)
[2021-11-30] MEDS ORDERED: HYDROMORPHONE HCL 0.5 MG/ 0.5 ML SYRINGE (J1170 PER 1) IV PRN (17:25)
[2021-11-30] MEDS ORDERED: ONDANSETRON 4MG 2ML VIAL IV PRN ×2 (17:25→17:40)
[2021-11-30] MEDS ORDERED: fentaNYL 100 MCG/2 ML INJECTION IV PRN (17:25)
[2021-11-30] MEDS ORDERED: oxyCODONE 5MG TAB PO PRN (17:25)
[2021-11-30] MEDS ORDERED: ACETAMINOPHEN TAB 650MG DOSE (2X325MG) PO PRN (17:40)
[2021-11-30] MEDS ORDERED: traMADol 50 MG TAB PO PRN (17:40)
[2021-11-30 20:20] VITALS: BP 114/75
[2021-11-30 20:30] VITALS: O2SAT 97
[2021-11-30] MEDS: PERCOCET 5MG/325MG TAB PO PRN (20:33)
[2021-11-30 20:50] VITALS: BP 113/74
[2021-11-30] MEDS ORDERED: OMEPRAZOLE 20MG CAP PO SCH (21:00)
[2021-11-30] MEDS ORDERED: AMITRIPTYLINE 50 MG TAB PO SCH (21:00)
[2021-11-30 21:20] VITALS: BP 114/77
[2021-11-30] MEDS: ceFAZolin SOD 1 GM in D5W MINI-BAG PLUS 50 ML IV SCH (21:31)
[2021-11-30 22:20] VITALS: BP 113/76
[2021-11-30 23:20] VITALS: BP 109/73
[2021-12-01 00:20] VITALS: BP 109/74
[2021-12-01 01:20] VITALS: BP 138/74
[2021-12-01] MEDS: PERCOCET 5MG/325MG TAB PO PRN ×2 (03:59→10:00)
[2021-12-01] MEDS: ceFAZolin SOD 1 GM in D5W MINI-BAG PLUS 50 ML IV SCH (05:52)
[2021-12-01 06:00] VITALS: BP 129/72
[2021-12-01] MEDS ORDERED: HEPARIN SOD (PORCINE) 5000UNITS/ML 1ML VIAL/SYRINGE SQ SCH (06:00)
[2021-12-01] MEDS ORDERED: LEVOTHYROXINE 137MCG TABLET (0.137MG) PO SCH (06:00)
[2021-12-01 09:00] VITALS: O2SAT 96
[2021-12-01] MEDS ORDERED: ENOX40IN3 SC (09:28)
== END 2021-12-01 10:35 | disposition home or self-care (01) ==
LOC: M SDC 09:05 → M ED INP 17:38 → M MS5PR 20:20
PROVIDERS: ADMIT Plastic Surgery Surgery of the Hand; ATTEND Plastic Surgery Surgery of the Hand
DX: N62 Hypertrophy of breast (principal); E03.9 Hypothyroidism, unspecified; K21.9 Gastro-esophageal reflux disease without esophagitis; F41.9 Anxiety disorder, unspecified; K57.92 Diverticulitis of intestine, part unspecified, without perforation or abscess without bleeding; Z86.711 Personal history of pulmonary embolism; Z85.41 Personal history of malignant neoplasm of cervix uteri; Z79.899 Other long term (current) drug therapy; Z98.84 Bariatric surgery status; Z88.5 Allergy status to narcotic agent
CPT/HCPCS: 19318; 88305; 96361; 96365; 96366; 96372; C9290; G0378; J0131; J0690; J1100; J1170; J1580; J1644; J2250; J2405; J3010